=== PATIENT | male | born 1960 | race Caucasian/White ===

== ENCOUNTER → 2016-03-03 | Day surgery (SDC) | payer OTHER | LOC: MSO 07:08 → EDBD 07:08 → MSO 13:30 | DX: Z12.11 Encounter for screening for malignant neoplasm of colon (principal); D12.5 Benign neoplasm of sigmoid colon; K57.30 Diverticulosis of large intestine without perforation or abscess without bleeding | CPT/HCPCS: 00810; J3010; J7120 ==

== ENCOUNTER → 2017-04-05 | Day surgery (SDC) | payer OTHER | LOC: MSO 08:14 | DX: Z09 Encounter for follow-up examination after completed treatment for conditions other than malignant neoplasm (principal); D12.2 Benign neoplasm of ascending colon; Z86.010 Personal history of colon polyps; D12.5 Benign neoplasm of sigmoid colon; Z80.0 Family history of malignant neoplasm of digestive organs; Z90.49 Acquired absence of other specified parts of digestive tract; F41.9 Anxiety disorder, unspecified | CPT/HCPCS: 00811; J2704; J7120 ==

== ENCOUNTER → 2018-12-30 | Outpatient (CLI) | payer BC ==
[2018-12-30 14:42] LABS: BASO # 0.1 (0.02-0.10); EOS # 0.1 (0.04-0.40); EOS % 1.7 % (0.0-4.0); HEMATOCRIT 47.2 % (42.0-52.0); HEMOGLOBIN 15.7 g/dL (13.5-18.0); LYMPH# 1.6 (1.50-4.00); MEAN CELL VOLUME 96 fl (78-100); MEAN CORPUSCULAR HEMOGLOBIN 32 pg (27-31); MEAN CORPUSCULAR HGB CONC 33 g/dL (33-37); MONO # 0.5 (0.20-0.80); NEU # 2.9 (1.40-6.50); PLATELET COUNT 211 K/mm3 (130-400); RED BLOOD COUNT 4.92 M/mm3 (4.20-5.60); RED CELL DISTRIBUTION WIDTH 13.4 % (11.5-14.5); WHITE BLOOD COUNT 5.2 K/mm3 (4.8-10.8)
[2018-12-30 14:52] LABS: ALBUMIN 4.4 g/dL (3.5-5.0)
[2018-12-30 14:54] LABS: TOTAL PROTEIN 7.5 g/dL (6.4-8.3)
[2018-12-30 14:56] LABS: TOTAL BILIRUBIN 0.4 mg/dL (0.2-1.2)
== END ==
LOC: LAB 14:23
PROVIDERS: Family Medicine
DX: Z00.00 Encounter for general adult medical examination without abnormal findings (principal); Z12.5 Encounter for screening for malignant neoplasm of prostate; E78.5 Hyperlipidemia, unspecified; R73.9 Hyperglycemia, unspecified

== ENCOUNTER → 2019-02-27 | Day surgery (SDC) | payer BC | LOC: MSO 07:07 | DX: Z12.11 Encounter for screening for malignant neoplasm of colon (principal); Z86.010 Personal history of colon polyps; Z80.0 Family history of malignant neoplasm of digestive organs; F17.220 Nicotine dependence, chewing tobacco, uncomplicated; M19.90 Unspecified osteoarthritis, unspecified site; F41.9 Anxiety disorder, unspecified | CPT/HCPCS: 00812; J2704; J7120 ==

== ENCOUNTER → 2019-10-06 | Outpatient (CLI) | payer BC ==
[2019-10-06 10:40] LABS: BASO # 0.1 (0.02-0.10); EOS # 0.1 (0.04-0.40); EOS % 2.6 % (0.0-4.0); HEMATOCRIT 44.9 % (42.0-52.0); MEAN CELL VOLUME 94 fl (78-100); MEAN CORPUSCULAR HEMOGLOBIN 31 pg (27-31); MEAN CORPUSCULAR HGB CONC 33 g/dL (33-37); MEAN PLATELET VOLUME 10.5 fl (7.4-10.4); MONO # 0.5 (0.20-0.80); NEU # 2.6 (1.40-6.50); PLATELET COUNT 230 K/mm3 (130-400); RED BLOOD COUNT 4.78 M/mm3 (4.20-5.60); RED CELL DISTRIBUTION WIDTH 13.4 % (11.5-14.5); WHITE BLOOD COUNT 5.3 K/mm3 (4.8-10.8)
[2019-10-06 10:45] LABS: ALBUMIN 4.4 g/dL (3.5-5.0)
[2019-10-06 10:46] LABS: POTASSIUM 4.4 mmol/L (3.5-5.1)
[2019-10-06 10:47] LABS: CALCIUM 9.3 mg/dL (8.3-10.5)
[2019-10-06 10:48] LABS: PROTHROMBIN TIME 9.6 SECONDS (9.0-12.0); TOTAL PROTEIN 7.2 g/dL (6.4-8.3)
[2019-10-06 10:50] LABS: TOTAL BILIRUBIN 0.3 mg/dL (0.2-1.2)
[2019-10-06 11:07] LABS: URINE APPEARANCE CLEAR; URINE BILIRUBIN NEGATIVE (NEGATIVE); URINE BLOOD NEGATIVE (NEGATIVE); URINE COLOR YELLOW; URINE GLUCOSE NEGATIVE (NEGATIVE); URINE KETONE NEGATIVE (NEGATIVE); URINE LEUKOCYTE ESTERASE NEGATIVE (NEGATIVE); URINE NITRATE NEGATIVE (NEGATIVE); URINE PROTEIN(semi-quant) TRACE mg/dL (NEGATIVE); URINE UROBILINOGEN NORMAL (NORMAL); URINE WBC 0-1 /hpf (0-3)
== END ==
LOC: AMSURD 10:18 → LAB 10:18 → RAD 10:18
PROVIDERS: Physician Assistant
DX: Z01.818 Encounter for other preprocedural examination (principal); R06.02 Shortness of breath

== ENCOUNTER → 2021-03-25 | Outpatient (CLI) | payer BC ==
[2021-03-25 08:51] LABS: BASO # 0.06 K/mm3 (0.02-0.10); EOS # 0.22 K/mm3 (0.04-0.40); EOS % 3.9 % (0.0-4.0); HEMATOCRIT 47.9 % (42.0-52.0); HEMOGLOBIN 16.1 g/dL (13.5-18.0); LYMPH# 1.67 K/mm3 (1.50-4.00); MEAN CELL VOLUME 95 fl (78-100); MEAN CORPUSCULAR HEMOGLOBIN 32 pg (27-31); MEAN CORPUSCULAR HGB CONC 34 g/dL (33-37); MONO # 0.39 K/mm3 (0.20-0.80); NEU # 3.24 K/mm3 (1.40-6.50); PLATELET COUNT 222 K/mm3 (130-400); RED BLOOD COUNT 5.06 M/mm3 (4.20-5.60); RED CELL DISTRIBUTION WIDTH 12.6 % (11.5-14.5); WHITE BLOOD COUNT 5.6 K/mm3 (4.8-10.8)
[2021-03-25 09:08] LABS: ALBUMIN 4.4 g/dL (3.4-4.8)
[2021-03-25 09:09] LABS: CALCIUM 9.9 mg/dL (8.3-10.5)
[2021-03-25 09:11] LABS: TOTAL PROTEIN 7.3 g/dL (6.2-8.1)
[2021-03-25 09:12] LABS: TOTAL BILIRUBIN 0.4 mg/dL (0.2-1.2)
== END ==
LOC: LAB 08:09
PROVIDERS: Physician Assistant
DX: Z00.00 Encounter for general adult medical examination without abnormal findings (principal); Z12.5 Encounter for screening for malignant neoplasm of prostate; Z13.29 Encounter for screening for other suspected endocrine disorder

== ENCOUNTER → 2021-04-12 | Outpatient (CLI) | payer BC | LOC: LAB 11:31 | DX: E78.5 Hyperlipidemia, unspecified (principal); E87.5 Hyperkalemia ==

== ENCOUNTER 2022-09-08 07:46 | Outpatient (RCR) | payer BC | END 2022-10-08 | disposition home or self-care (01) | LOC: PT | DX: Z98.1 Arthrodesis status (principal) ==

== ENCOUNTER → 2022-11-23 | Outpatient (CLI) | payer BC | LOC: RAD 10:34 | DX: M51.34 Other intervertebral disc degeneration, thoracic region (principal); M43.26 Fusion of spine, lumbar region ==

== ENCOUNTER → 2024-01-31 | Day surgery (SDC) | payer BC ==
[~2024-01-31] MED LIST: Lidocaine PF 2% (20 MG/ML) 2 ML VIAL ONE
== END ==
LOC: MSO 10:15
DX: Z12.11 Encounter for screening for malignant neoplasm of colon (principal); D12.2 Benign neoplasm of ascending colon; K57.30 Diverticulosis of large intestine without perforation or abscess without bleeding; Z80.0 Family history of malignant neoplasm of digestive organs
CPT/HCPCS: 00811; J2704; J7120